=== PATIENT | female | born 1950 | race Caucasian/White ===

== ENCOUNTER 2017-06-26 14:31 | Outpatient (CLI) | payer OTHER ==
[~2017-06-26 14:31] MED LIST: APIDRA SOL100 UNIT/1; CIPRO500 MG PO; COZAAR100 MG; CYMBALTA20 MG; GLIMEPIRIDE4 MG; GLUMETZA1000 MG; LANTUS100 U/ML; LIPITOR40 MG; PLAVIX75 MG; SYNTHROID125 MCG; TESSALON PERLE100 MG PO
== END 2017-06-26 17:01 | disposition home or self-care (01) ==
LOC: RAD 14:31
DX: J94.2 Hemothorax (principal)

== ENCOUNTER 2017-08-18 12:34 | Outpatient (CLI) | payer OTHER | END 2017-08-18 12:52 | disposition home or self-care (01) | LOC: NUCLEAR 12:34 | DX: M81.0 Age-related osteoporosis without current pathological fracture (principal) ==

== ENCOUNTER 2017-11-03 09:40 | Day surgery (SDC) | payer OTHER | END 2017-11-03 18:10 | disposition home or self-care (01) | LOC: CIR.AMB 09:40 | DX: M65.311 Trigger thumb, right thumb (principal) ==

== ENCOUNTER 2018-01-11 13:20 | Outpatient (CLI) | payer OTHER | END 2018-01-11 13:30 | disposition home or self-care (01) | LOC: LAB 13:20 | DX: E11.29 Type 2 diabetes mellitus with other diabetic kidney complication (principal); E03.8 Other specified hypothyroidism; E78.2 Mixed hyperlipidemia; K92.1 Melena ==

== ENCOUNTER 2018-01-14 15:29 | Outpatient (CLI) | payer OTHER | END 2018-01-14 15:30 | disposition home or self-care (01) | LOC: LAB 15:29 | DX: N39.0 Urinary tract infection, site not specified (principal); R82.79 Other abnormal findings on microbiological examination of urine ==

== ENCOUNTER 2018-03-06 15:48 | Outpatient (CLI) | payer OTHER | END 2018-03-06 16:41 | disposition home or self-care (01) | LOC: LAB 15:48 | DX: D64.89 Other specified anemias (principal); E11.29 Type 2 diabetes mellitus with other diabetic kidney complication; I25.10 Atherosclerotic heart disease of native coronary artery without angina pectoris; E78.2 Mixed hyperlipidemia; M19.90 Unspecified osteoarthritis, unspecified site ==

== ENCOUNTER 2018-06-08 23:50 | Emergency (ER) | payer OTHER ==
[~2018-06-08] VITALS: Ht 162.6 cm; Wt 104.3 kg
== END 2018-06-09 14:50 | disposition home or self-care (01) ==
LOC: ER 23:50
DX: I11.9 Hypertensive heart disease without heart failure (principal); N39.0 Urinary tract infection, site not specified; B96.29 Other Escherichia coli [E. coli] as the cause of diseases classified elsewhere; R31.29 Other microscopic hematuria
CPT/HCPCS: 70551

== ENCOUNTER 2019-03-17 07:10 | Outpatient (CLI) | payer OTHER | END 2019-03-17 07:23 | disposition home or self-care (01) | LOC: NUCLEAR 07:10 | DX: R07.89 Other chest pain (principal); I10 Essential (primary) hypertension; I11.9 Hypertensive heart disease without heart failure; E78.1 Pure hyperglyceridemia | CPT/HCPCS: 78452; 93017; A9500; J0153 ==

== ENCOUNTER → 2020-04-09 | Emergency (ER) | payer OTHER ==
[~2020-04-09] MED LIST changes: +CLONAZEPAM0.5 MG PO; +GABAPENTIN100 M2 PO; +HUMALOG KW100 UNIT/1 SQ; +LANTUS SOL100 UNIT/1 SQ; +ROSUVASTATIN CA40 MG PO; +SYNTHROID150 MCG PO
== END | disposition left against medical advice (07) ==
LOC: ER 22:03
DX: Z53.20 Procedure and treatment not carried out because of patient's decision for unspecified reasons (principal)

== ENCOUNTER 2020-04-10 12:37 | Outpatient (CLI) | payer OTHER ==
[~2020-04-10 12:37] MED LIST changes: -CLONAZEPAM0.5 MG PO; -GABAPENTIN100 M2 PO; -HUMALOG KW100 UNIT/1 SQ; -LANTUS SOL100 UNIT/1 SQ; -ROSUVASTATIN CA40 MG PO; -SYNTHROID150 MCG PO
== END 2020-04-10 12:47 | disposition home or self-care (01) ==
LOC: NUCLEAR 12:37
PROVIDERS: ATTEND General Practice
DX: I82.403 Acute embolism and thrombosis of unspecified deep veins of lower extremity, bilateral (principal); I73.9 Peripheral vascular disease, unspecified

== ENCOUNTER 2020-04-12 22:19 | Emergency (ER) | payer OTHER ==
[~2020-04-12] VITALS: Ht 165.1 cm; Wt 77.1 kg
[2020-04-12] MEDS ORDERED: SYNTHROID150 MCG PO (22:34)
[2020-04-12] MEDS ORDERED: LANTUS SOL100 UNIT/1 SQ (22:34)
[2020-04-12] MEDS ORDERED: CLONAZEPAM0.5 MG PO (22:34)
[2020-04-12] MEDS ORDERED: GABAPENTIN100 M2 PO (22:34)
[2020-04-12] MEDS ORDERED: ROSUVASTATIN CA40 MG PO (22:35)
[2020-04-12] MEDS ORDERED: HUMALOG KW100 UNIT/1 SQ (22:35)
== END 2020-04-13 11:52 | disposition home or self-care (01) ==
LOC: ER 22:19
DX: R42 Dizziness and giddiness (principal)

== ENCOUNTER 2021-03-21 13:00 | Outpatient (CLI) | payer OTHER ==
[~2021-03-21 13:00] MED LIST changes: +CLONAZEPAM0.5 MG PO; +GABAPENTIN100 M2 PO; +HUMALOG KW100 UNIT/1 SQ; +LANTUS SOL100 UNIT/1 SQ; +ROSUVASTATIN CA40 MG PO; +SYNTHROID150 MCG PO
== END 2021-03-21 13:04 | disposition home or self-care (01) ==
LOC: PPH VACUNA 13:00
PROVIDERS: ATTEND Emergency Medicine Pediatric Emergency Medicine
DX: Z23 Encounter for immunization (principal)

== ENCOUNTER → 2022-01-28 | Outpatient (CLI) | payer OTHER | END | disposition home or self-care (01) | LOC: NUCLEAR 09:30 | PROVIDERS: ATTEND Internal Medicine | DX: M81.0 Age-related osteoporosis without current pathological fracture (principal); Z88.0 Allergy status to penicillin ==